=== PATIENT | male | born 1970 | race Caucasian/White ===

== ENCOUNTER 2017-01-19 11:34 | Inpatient (IN) | payer MEDICARE, OTHER ==
[~2017-01-19] VITALS: Ht 190.5 cm; Wt 58.1 kg
[~2017-01-19 11:34] MED LIST: ACTIGALL 300MG300 MG PO; CREON DR 24,001 EACH PO; LEVAQUIN750 MG PO; LEVEMIR100 UNIT/1 SQ; NEXIUM40 MG PO; PAXIL40 MG PO; PHENERGAN 12.12.5 M1 PO; PRAVACHOL40 MG PO
[2017-01-19 17:07] LABS: HEMOGLOBIN 12.5 gm/dl (14.0-17.5); RED BLOOD COUNT 4.26 M/UL (4.20-5.50)
[2017-01-19 17:21] LABS: BUN/CREATININE RATIO 24 (0-10)
[2017-01-19 22:05] LABS: HEMOGLOBIN 13.8 gm/dl (14.0-17.5); RED BLOOD COUNT 4.63 M/UL (4.20-5.50); WHITE BLOOD COUNT 14.1 K/UL (4.5-11.0)
[2017-01-19 22:30] LABS: BUN/CREATININE RATIO 20 (0-10)
[2017-01-20 04:16] LABS: HEMOGLOBIN 11.2 gm/dl (14.0-17.5); RED BLOOD COUNT 3.82 M/UL (4.20-5.50); WHITE BLOOD COUNT 10.4 K/UL (4.5-11.0)
[2017-01-20 04:37] LABS: BUN/CREATININE RATIO 22 (0-10)
[2017-01-20 22:17] LABS: HEMOGLOBIN 10.9 gm/dl (14.0-17.5)
[2017-01-21 10:15] LABS: HEMOGLOBIN 11.1 gm/dl (14.0-17.5); RED BLOOD COUNT 3.82 M/UL (4.20-5.50); WHITE BLOOD COUNT 5.9 K/UL (4.5-11.0)
[2017-01-21 10:29] LABS: BUN/CREATININE RATIO 8 (0-10)
[2017-01-22 03:30] LABS: HEMOGLOBIN 11.2 gm/dl (14.0-17.5); RED BLOOD COUNT 3.83 M/UL (4.20-5.50); WHITE BLOOD COUNT 5.5 K/UL (4.5-11.0)
[2017-01-22] MEDS ORDERED: FERROUS SULFAT325 MG PO (15:12)
[2017-01-22] MEDS ORDERED: PERCOCET 5/325 T1 EA PO (15:14)
[2017-01-22] MEDS ORDERED: NICOTINE PATCH1 EAC1 TD (15:15)
== END 2017-01-22 16:05 | disposition home or self-care (01) | DRG 377 ==
LOC: ER1 11:34 → PROG CARE 16:28 → ZEROF 16:28 → PROG CARE 21:45
PROVIDERS: Internal Medicine; Specialist/Technologist Athletic Trainer; ADMIT Internal Medicine
DX: K92.2 Gastrointestinal hemorrhage, unspecified (principal); E43 Unspecified severe protein-calorie malnutrition; Z68.1 Body mass index [BMI] 19.9 or less, adult; R64 Cachexia; K92.1 Melena; E86.0 Dehydration; R11.2 Nausea with vomiting, unspecified; R10.9 Unspecified abdominal pain; E11.9 Type 2 diabetes mellitus without complications; F17.210 Nicotine dependence, cigarettes, uncomplicated; F12.10 Cannabis abuse, uncomplicated; F11.10 Opioid abuse, uncomplicated; F15.10 Other stimulant abuse, uncomplicated; F41.9 Anxiety disorder, unspecified; E78.5 Hyperlipidemia, unspecified; K21.9 Gastro-esophageal reflux disease without esophagitis; Z85.07 Personal history of malignant neoplasm of pancreas; Z98.890 Other specified postprocedural states; Z79.899 Other long term (current) drug therapy
CPT/HCPCS: 36415; 71010; 80048; 80053; 80307; 81001; 82150; 82607; 82962; 83036; 83540; 83605; 83690; 83735; 83880; 84443; 85014; 85018; 85025; 85027; 85610; 85730; 87040; 93005; 94664; 96361; 96365; 96375; 96376; 99285; C9113; J0696; J2270; J2405; J2550; J3411; J3475; J7030; J7050

== ENCOUNTER 2020-12-20 17:08 | Inpatient (IN) | payer MEDICARE, MEDICAID ==
[~2020-12-20] VITALS: Ht 190.5 cm; Wt 49.9 kg
[~2020-12-20 17:08] MED LIST changes: +ACTIGALL300 MG PO; +AZITHROMYCIN250 MG PO; +BENADRYL 25MG C25 MG PO; +BENTYL 10MG CAP10 MG PO; +ENSURE LIQUID237 ML PO; +FERROUS SULFAT325 MG PO; +FLAGYL500 MG PO; +FLOMAX 0.4 MG0.4 MG PO; +FLOMAX0.4 MG PO; +NICOTINE PATCH1 EAC1 TD; +NORCO 5-325 TA1 EACH PO; +PAXIL20 MG PO; +PERCOCET 5-3251 EACH PO; +PERCOCET 5/325 T1 EA PO; +PHENERGAN 25 MG25 M1 PO; +REGLAN10 MG PO; +TORADOL 10 MG T10 MG PO; +ZOFRAN 4 MG TAB4 MG PO; +ZOFRAN ODT4 MG PO
[2020-12-20 19:15] LABS: HEMOGLOBIN 11.1 gm/dl (14.0-17.5); RED BLOOD COUNT 3.67 M/UL (4.20-5.50); WHITE BLOOD COUNT 18.2 K/UL (4.5-11.0)
[2020-12-20 19:49] LABS: BUN/CREATININE RATIO 14 (0-10)
[2020-12-20 23:28] LABS: BODY FLUID SOURCE PERITONEAL
[2020-12-20 23:29] LABS: RBC (AUTOMATED) 300 (0-100000); WBC (AUTOMATED) 7437 (0-500)
[2020-12-20 23:54] LABS: LDH, BODY FLUID 305 U/L; TOTAL PROTEIN, BODY FLUID 0.6 gm/dL
[2020-12-21 05:09] LABS: RED BLOOD COUNT 3.32 M/UL (4.20-5.50)
[2020-12-21 05:29] LABS: BUN/CREATININE RATIO 15 (0-10)
[2020-12-21] MEDS ORDERED: NEXIUM40 MG PO (11:23)
[2020-12-21] MEDS ORDERED: CREON DR 24,001 EACH PO (13:12)
[2020-12-22 00:35] LABS: HEMOGLOBIN 9.2 gm/dl (14.0-17.5)
[2020-12-22 00:50] LABS: WHITE BLOOD COUNT 30.7 K/UL (4.5-11.0)
[2020-12-22 00:51] LABS: RED BLOOD COUNT 3.06 M/UL (4.20-5.50)
[2020-12-22 00:57] LABS: BUN/CREATININE RATIO 16 (0-10)
[2020-12-22 08:14] LABS: HBSAG SCREEN Negative (Negative); HEP A AB, IGM Negative (Negative); HEP B CORE AB, IGM Negative (Negative); HEP C VIRUS AB 0.3 (0.0-0.9)
[2020-12-23 05:11] LABS: HEMOGLOBIN 8.9 gm/dl (14.0-17.5); RED BLOOD COUNT 2.94 M/UL (4.20-5.50)
[2020-12-23 07:20] LABS: BUN/CREATININE RATIO 16 (0-10)
[2020-12-25 00:08] LABS: HEMOGLOBIN 10.3 gm/dl (14.0-17.5)
[2020-12-25 00:12] LABS: RED BLOOD COUNT 3.41 M/UL (4.20-5.50); WHITE BLOOD COUNT 34.6 K/UL (4.5-11.0)
[2020-12-25 00:33] LABS: BUN/CREATININE RATIO 11 (0-10)
--- NOTE | 2020-12-25 03:53 | NUR ---
PATIENT'S EYES STARTED TO ROLL BACK IN HIS HEAD AT 2320. PATIENT WAS ABLE TO WAKE AND FOCUS FOR BRIEF PERIODS BUT HIS EYES CONTINUED TO ROLL BACK INTO HIS HEAD. THE PATIENT'S PUPILS WERE ROUND AND REACTIVE TO LIGHT. WHEN ASKED WHERE HE WAS HE STATED "I'M AT [facility]". THE PATIENT HAD PREVIOUSLY STATED AT THE BEGINING OF MY SHIFT THAT HE WAS IN [facility]. WHEN ASKED THE YEAR THE PATIENT STATED THAT THE YEAR IS 1999. HE PREVIOUSLY STATED AT THE BEGINING OF MY SHIFT THAT IT WAS 2020. THE PATIENT WAS ABLE TO IDENTIFY HIS SIGNIFICANT OTHER. THROUGHOUT THE QUESTIONS AND ASSESSMENT THE PATIENT'S EYES CONTINUED TO ROLL BACK INTO HIS HEAD AND HIS HEAD KEPT BOBBING UP AND DOWN. THE PATIENT ALSO ATTEMPTED TO PULL OUT HIS DOBHOFF WHICH HE HAD NOT BEEN DOING PREVIOUSLY. DR. JOSHI WAS CALLED AND NOTIFIED OF THE PATIENT'S CHANGES AT 2328. DR. JOSHI WAS ALSO NOTIFIED THAT THE PATIENT HAS NOT HAD ANY LABS DRAWN THIS MORNING. DR. JOSHI ORDERED A CMP, CARDIAC SCREEN, CBC, LACTIC ACID, AMMONIA AND LIVER PANELS, AN ABG, AN EKG. DR JOSHI CAME TO SEE THE PATIENT AROUND MIDNIGHT. DR. JOSHI ASKED THE PATIENT WHERE HE WAS AND WHAT THE YEAR IS, TO WHICH THE PATIENT ANSWERED INCORRECTLY. THE PATIENT DID KNOW WHO IS SIGNIFICANT OTHER WHO WAS IN THE ROOM WAS. DR. JOSHI WAS NOTIFIED OF PATIENT'S WBC BEING 34.6 AND LACTIC ACID BEING 23.7 AND WAS ALSO SHOWN THE PATIENT'S EKG. NO ORDERS WERE GIVEN.
[2020-12-25] MEDS ORDERED: PRAVASTATIN SOD20 MG PO (15:34)
[2020-12-25] MEDS ORDERED: ZOSYN 3.373.375 GM/1 IV (15:36)
--- NOTE | 2020-12-25 20:17 | NUR ---
PT RESTING QUIETLY . C/O NAUSEA . ZOFRAN ADMINISTERED ORDERED PRN. WAITING FOR [facility] FOR TRANSFER.
--- NOTE | 2020-12-25 21:06 | NUR ---
[facility] NOTIFIED TO RECEIVE UPDATE ON TRANSFER. INFORMED TRANSFER STILL PENDING . IT MAY POSSIBLE BE ANOTHER 30-45 MINUTES BEFORE PICKUP.
--- NOTE | 2020-12-25 23:00 | NUR ---
EMS HERE TO FAMILY PRACTITIONER PATIENT. CONCERNS ADDRESSED BY MYSELF AND EMS STAFF REGARDING BLS VS [facility] TRANSPORT. PATIENT IS CURRENTLY IN PCU ON COLLISION WORKER. ROOM ASSIGNMENT AT [facility] CHANGED TO CTVU ROOM 16. INSURANCE SALES ASSISTANT KRYSTAL NOTIFIED. HE WAS IN AGREEMENT WITH ME THAT PATIENT DOES NEED [facility] TRANSPORT . I SPOKE WITH DIRECTOR AT [facility] AND REQUEST WAS PLACED FOR [facility] TO TRANSPORT. REPORT WAS THEN CALLED TO CASSANDRA LOCKETT RN AT [facility]. AWAITING [facility] ARRIVAL.
--- NOTE | 2020-12-25 23:38 | NUR ---
PATIENT PULLED DOPHOFF OUT .
== END 2020-12-26 00:10 | disposition short-term general hospital (02) | DRG 871 ==
LOC: ER1 17:08 → CDU 22:15 → PROG CARE 12-21 12:21
PROVIDERS: Emergency Medicine; Internal Medicine; ADMIT Internal Medicine
PROC: 0W9G3ZZ Drainage of Peritoneal Cavity, Percutaneous Approach (ICD-10-PCS; principal; 2020-12-20)
PROC: 0DH67UZ Insertion of Feeding Device into Stomach, Via Natural or Artificial Opening (ICD-10-PCS; 2020-12-23)
PROC: 3E0G76Z Introduction of Nutritional Substance into Upper GI, Via Natural or Artificial Opening (ICD-10-PCS; 2020-12-23)
DX: A41.51 Sepsis due to Escherichia coli [E. coli] (principal); K65.2 Spontaneous bacterial peritonitis; E43 Unspecified severe protein-calorie malnutrition; R18.8 Other ascites; J98.11 Atelectasis; K86.1 Other chronic pancreatitis; E87.3 Alkalosis; K76.0 Fatty (change of) liver, not elsewhere classified; Z20.822 Contact with and (suspected) exposure to COVID-19; K74.60 Unspecified cirrhosis of liver; E11.649 Type 2 diabetes mellitus with hypoglycemia without coma; R00.0 Tachycardia, unspecified; Z90.49 Acquired absence of other specified parts of digestive tract; F17.210 Nicotine dependence, cigarettes, uncomplicated; Z79.899 Other long term (current) drug therapy; D72.829 Elevated white blood cell count, unspecified; R11.2 Nausea with vomiting, unspecified
CPT/HCPCS: 36415; 36600; 70450; 71045; 74018; 80053; 80074; 80307; 81001; 82140; 82550; 82553; 82803; 82945; 82962; 83605; 83615; 83690; 83735; 83874; 83880; 84100; 84157; 84439; 84443; 84484; 85007; 85025; 85027; 85610; 85730; 86140; 86850; 86900; 86901; 87040; 87070; 87077; 87086; 87186; 87205; 89051; 93005; 96374; 99285; G0480; J0696; J1650; J2270; J2405; J2543; J2550; J7030; Q9967; U0002